=== PATIENT | male | born 1935 | race Caucasian/White ===

== ENCOUNTER 2018-02-02 10:24 | Inpatient (IN) ==
[2018-02-02] MEDS ORDERED: CALCIUM GLUCONATE 4.65 MEQ in DEXTROSE 5% IN WATER 50 ML IV ONE ×2 (12:17→13:05)
[2018-02-02] MEDS ORDERED: NALOXONE HCL 0.4 MG/ML VIAL IV PRN (12:30)
[2018-02-02] MEDS ORDERED: ACETAMINOPHEN 325 MG TABLET PO PRN (12:30)
[2018-02-02] MEDS ORDERED: DEXTROSE 31 GM ORAL.SUSP PO PRN (12:34)
[2018-02-02] MEDS ORDERED: DEXTROSE 50% 50 ML VIAL IV PRN (12:34)
[2018-02-02] MEDS ORDERED: METOLAZONE 2.5 MG TABLET PO ONE (12:36)
[2018-02-02] MEDS ORDERED: IPRATROPIUM/ALBUTEROL 3 ML AMPUL.NEB NEB ONE (12:52)
[2018-02-02] MEDS ORDERED: FUROSEMIDE 250 MG in 0.9 % SODIUM CHLORIDE 225 ML IV SCH (13:00)
[2018-02-02] MEDS ORDERED: FUROSEMIDE 100 MG/10 ML VIAL IV ONE (13:00)
[2018-02-02] MEDS ORDERED: SODIUM POLYSTYRENE SULFONATE 15 GM/60 ML SUSPENSION PO ONE (13:04)
[2018-02-02] MEDS ORDERED: DEXTROSE 50% 50 ML VIAL IV ONE (13:05)
[2018-02-02] MEDS ORDERED: INSULIN REGULAR, HUMAN 1 UNIT/0.01 ML UNIT IV ONE (13:05)
[2018-02-02 13:16] LABS: Basophils # (Auto) 0 K/mcL (0.0-0.3); Basophils % (Auto) 0.4 % (0.0-2.0); Eosinophils # (Auto) 0.1 K/mcL (0.0-0.7); Eosinophils % (Auto) 1.8 % (0.0-7.0); Lymphocytes # (Auto) 0.5 K/mcL (1.5-4.8); Lymphocytes % (Auto) 7.3 % (15.5-49.0); Mean Cell Volume 89.6 fL (80.0-100.0); Mean Corpuscular HGB Conc 32.9 g/dL (31.0-36.0); Mean Corpuscular Hemoglobin 29.5 pg (26.0-34.0); Monocytes # (Auto) 0.6 K/mcL (0.1-0.9); Monocytes % (Auto) 8.5 % (1.0-12.0); Platelet Count 175 K/mcL (140-440); Red Cell Distribution Width 15.7 % (11.5-14.5)
--- NOTE | 2018-02-02 13:30 | XRay Report ---
CLINICAL INFORMATION: CHF COMPARISON: 01/20/2018 FINDINGS: Moderate cardiomegaly is unchanged. Mediastinum is unremarkable. Pulmonary vessels are now mildly distended and there is mild interstitial edema throughout both lungs. Moderate left basilar infiltrate or atelectasis has developed in the retrocardiac region. IMPRESSION: Mild CHF - new Moderate infiltrate or atelectasis developing left cardiac region Interpreted and Authenticated by: Fahad Ramos 02/02/18
[2018-02-02] MEDS: 0.9 % SODIUM CHLORIDE 10 ML SYRINGE IV SCH ×3 (13:54→20:21)
[2018-02-02 14:04] LABS: ALT/SGPT 38 U/l (0-40); Albumin 3.1 gm/dL (3.2-5.2); Alkaline Phosphatase 90 U/L (39-117); Bilirubin,Direct < 0.2 mg/dL (0.0-0.3); Blood Urea Nitrogen 79 mg/dl (8-23); Gamma Glutamyl Transpeptidase 68 U/L (8-61); Uric Acid 7.9 mg/dL (2.5-8.0)
--- NOTE | 2018-02-02 14:15 | Internal Med History&Physical ---
Medical - H&P: HPI Patient information: Note initiated : 02/02/18 at 2:12 pm Service Date, if different from initiated Date: [] Patient: Darshan Barba a 82 y/o M admitted on 02/02/18 for hyperkalemia and volume overload. Chief Complaint: [] History of present illness: Mr. Barba is a 82 year old M with multiple medical issues who was [facility] from hip pain. The patient was there after the stent at [facility]. I believe he was admitted for sepsis and pneumonia, he also had acute on chronic renal failure. The patient was seen in the clinic by nephrology for renal failure follow-up at which time it was noted that the patient had significant bradycardia. Even during his hospital stay the patient had low heart rate this time around the patient's heart rate was in the 30s. The patient was sent to the emergency room at [facility] for evaluation. The patient was seen by a [employer] Dr. Smith. I reviewed his note pacemaker was not offered to this patient as he was asymptomatic, was mentating well, and was making good amounts of urine. No changes in medications were recommended. Patient was subsequently discharged back to [facility]. The patient at the rehab center continued to have worsening shortness of breath, had one episode of healthcare associated pneumonia and was treated with Zosyn. Antibiotics started on Monday 5 days of antibiotics will be tomorrow. I reviewed the discharge summary from pulmonary. Shortness of breath progressively has worsened over the last few days, patient has had some cough increased distention of abdomen increased swelling in his lower extremity. The patient has been treated with IV Lasix, without much response and worsening renal function. The patient was therefore sent here at [facility] for initiation of dialysis. Patient is somewhat hesitant regarding his dialysis plans at bedside he is willing to consider dialysis if it makes him feel better. On my evaluation today the patient was short of breath and that was his only complaint. He did not mention about chest pain nausea vomiting, had generalized swelling and worsening swelling along with worsening distention of abdomen. He denied any headache changes in vision difficulty in swallowing denied any fevers chills had some cough but no specific sputum production. Patient was saturating around 90-92% on 6 L of oxygen. Heart rate was 35 EKG was done stat which showed atrial flutter with slow ventricular response. He was placed on BIPAp to help with oxygenation. Admitted to PCU for further management, nephrology has been consulted and are following Pt is DNR - Constitutional Constitutional: Present: fatigue. Absent: chills, fever(s), headache(s) - EENT Eyes: Absent: loss of vision, other visual disturbances Nose, mouth and throat: Absent: headache(s), vertigo - Cardiovascular Cardiovascular: Present: dyspnea, dyspnea on exertion, edema, irregular heart rhythm, pedal edema, slow heart rate. Absent: chest pain, syncope - Respiratory Respiratory: Present: cough, dyspnea. Absent: pain on inspirtation - Gastrointestinal Gastrointestinal: Absent: diarrhea, nausea, tenesmus, vomiting - Genitourinary Genitourinary: Absent: urinary frequency, urinary hesitancy, urinary incontinence, urinary urgency - Musculoskeletal Musculoskeletal: Absent: muscle cramps - Integumentary Integumentary: Absent: wounds, jaundice - Neurological Neurological: Absent: focal weakness, vertigo, weakness - Psychiatric Psychiatric: Absent: suicidal ideation, visual hallucinations - Endocrine Endocrine: Absent: polydipsia, polyphagia, polyuria - Hematologic/Lymphatic Hematologic/Lymphatic: Absent: easy bleeding, easy bruising - Allergic/Immunologic Allergic/Immunologic: Absent: uticaria, wheezing Medical - H&P: [facility] Medical history: Medical History (Last Reviewed 12/28/17 @ 12:39 by Jigna Chapa MD) Headache (Chronic) Paroxysmal atrial fibrillation (Chronic) Chronic systolic heart failure (Chronic) Chronic renal insufficiency (Chronic) Edema (Chronic) Atrial fibrillation (Chronic) Anemia (Chronic 10/01/13) Gout (Chronic 10/01/13) CHF (congestive heart failure) (Chronic 10/01/13) Rotator cuff tear (Chronic) Diabetic peripheral neuropathy (Chronic 10/01/13) Hyperlipidemia (Chronic 10/01/13) Hypertension, essential (Chronic 10/01/13) Tinea pedis (Chronic 10/01/13) Benign prostatic disease (Chronic 10/01/13) Diabetes mellitus, type II (Chronic 10/01/13) Hyperkalemia (Chronic) Surgical history: Past Surgical History (Last Reviewed 12/28/17 @ 12:39 by Jigna Chapa MD) No pertinent past surgical history (Chronic) Family history: reviewed and not pertinent Medical - H&P: Meds Home Medications Medication Instructions Recorded Confirmed Type doxazosin 8 mg tablet 8 mg PO QHS tab 01/19/15 01/17/18 History omeprazole 20 mg capsule,delayed 20 mg PO QDAY 01/19/15 01/17/18 History release simvastatin 40 mg tablet 40 mg PO QDAY tab 01/19/15 01/17/18 History vitamin B complex tablet 1 tab PO QDAY tab 01/19/15 01/17/18 History allopurinol 100 mg tablet 100 mg PO QDAY tab 06/17/16 01/17/18 History cholecalciferol (vitamin D3) 1,000 1,000 unit PO QDAY cap 06/17/16 01/17/18 History unit capsule finasteride 5 mg tablet 5 mg PO QDAY 06/17/16 12/28/17 History lisinopril 10 mg tablet 10 mg PO QDAY 06/17/16 01/17/18 History psyllium husk 0.52 gram capsule 0.52 g PO QDAY cap 06/17/16 01/17/18 History aspirin 81 mg tablet,delayed 81 mg PO QDAY 10/13/16 01/17/18 History release tramadol 50 mg tablet 50 mg PO TID PRN 20 Days #60 tab 10/13/16 01/17/18 History furosemide 40 mg tablet 40 mg PO QDAY tab 03/30/17 01/17/18 History metolazone 2.5 mg tablet 2.5 mg PO .2XW tab 03/30/17 01/17/18 History acetaminophen ER 650 mg 650 mg PO BID tab 06/27/17 01/17/18 History tablet,extended release amlodipine 10 mg tablet 10 mg PO QDAY PRN tab 06/27/17 01/17/18 History ferrous sulfate 325 mg (65 mg 325 mg PO QDAY tab 12/28/17 01/17/18 History iron) tablet fluticasone 50 mcg/actuation nasal 2 spray INTRANASAL QDAY 12/28/17 01/17/18 History spray,suspension glipizide ER 10 mg tablet, 10 mg PO BID tab 12/28/17 01/17/18 History extended release 24 hr isosorbide mononitrate ER 30 mg 30 mg PO QAM 12/28/17 01/17/18 History tablet,extended release 24 hr Allergies Allergy/AdvReac Type Severity Reaction Status Date / Time diphenhydramine Allergy Unknown Unknown Verified 01/17/18 08:51 [From Benadryl] Medical - H&P: Exam - Constitutional Vitals: Pulse Resp Pulse Ox 40 L 35 H 98 02/02/18 13:56 02/02/18 13:56 02/02/18 13:56 Exam: GENERAL: The patient is a well-developed, well-nourished in no apparent distress. Is alert and oriented x3. VITAL SIGNS: Reviewed and as noted elsewhere. HEENT: Head is normocephalic and atraumatic. Extraocular muscles are intact. Pupils are equal, round, and reactive to light. Nares appeared normal. Mouth appears any without lesions. Mucous membranes are moist. NECK: Normal to inspection, Supple, No lymphadenopathy or thyromegaly. distended JVP LUNGS: Air entry equal on both sides, no wheezing, but has crackles present at the bases, pt is tachyepnic. No accessory muscles of respiration, HEART: bradycardic rate and rhythm irregular , S1 and S2 heard, no Gallop, s4 present, systolic murmur mitral. ABDOMEN: Soft, nontender, but distended. Positive bowel sounds. No hepatosplenomegaly was noted. EXTREMITIES: No cyanosis, clubbing, rash, lesion, edema uptill the abdomen NEUROLOGIC: Cranial nerves II through XII are grossly intact. Motor and Sensory System Grossly Intact PSYCHIATRIC: Normal affect, Normal Mood. Appropriate Behavior. SKIN: No ulceration or wounds noted, No jaundice, No rash noted. Medical - H&P: Reslt - Labs CBC & Chem 7: 02/02/18 12:31 02/02/18 12:31 Labs: Short CBC 02/02/18 Range/Units 12:31 WBC 7.3 (4.5-11.0) K/mcL Hgb 7.9 L (13.5-16.5) g/dL Hct 24.2 L (41.0-55.0) % Plt Count 175 (140-440) K/mcL BMP 02/02/18 12:31 Sodium 131 L Potassium 6.2 H* Chloride 95 L Carbon Dioxide 20 L BUN 79 H Creatinine 3.5 H Glucose 314 H Calcium 8.8 Cardiac Enzymes 02/02/18 Range/Units 12:31 Troponin T 0.53 H* (0-0.03) ng/ml Liver Function 02/02/18 Range/Units 12:31 Total Bilirubin 0.5 (0.0-1.0) mg/dL Direct Bilirubin < 0.2 (0.0-0.3) mg/dL GGT 68 H (8-61) U/L AST 24 (0-37) U/l ALT 38 (0-40) U/l Alkaline Phosphatase 90 (39-117) U/L Albumin 3.1 L (3.2-5.2) gm/dL - ABG Interpretation -: ABG interpreted by me Interpretation: respiratory alkalosis (hypoxia) Medical - H&P: A/P - Narrative A/P Narrative: A/P Acute on Chronic Renal failure Acute Congestive Heart failure wuith genralized anasarca Acute hypoxic REspiratory failure Acute Hyperkalemia Atrial Flutter with Slow heart rate Bradycardia Hypertension Hyperlipidemia Diabetes Mellitus Obesty Elevated troponin Plan Admit to PCU status Nephrology consulted Medically manage hyperkalemia IV calcium gluconate x 1 given. BIPAP for hypoxia Trend troponin, likely from ckd and chf IV lasix and lasix drip initiated, PO metolozone/ IV cholorthiazide to help with diuresis, see if this helps Consider hemodialysis, will need catheter placement, unfortunately patient is unstable for transport, will see if pt remains stable, can place femoral catheter if needed. Bradycardia due to aflutter, rarely amlodpine can worsen bradycadia. will hold off on same. Pt symptoms have worsened since his HR has dropped and I feel that he may benefit from a pacemaker, will discuss same with family for consideration to transfer to [facility] [place] or a second opinion. Resume home meds as appropriate hold blood pressure medications insulin ssi for glucose control Diet carb consistent Social History - Tobacco smoking status: Former smoker - Alcohol alcohol intake frequency: does not drink
[2018-02-02] MEDS ORDERED: CHLOROTHIAZIDE SODIUM 500 MG VIAL IV ONE (14:44)
[2018-02-02 14:49] LABS: Hemoglobin A1C 7.3 % HGB (4.0-6.0)
[2018-02-02] MEDS: ONDANSETRON 4 MG/2 ML VIAL IV PRN (15:15)
[2018-02-02] MEDS: PIPERACILLIN SODIUM/TAZOBACTAM 2.25 GM in DEXTROSE 5% IN WATER 50 ML IV SCH ×2 (15:15→21:22)
--- NOTE | 2018-02-02 15:24 | Nephrology Consult Note ---
History of Present Illness - Reason for Consult Patient information: Note initiated : 02/02/18 at 3:05 pm Service Date, if different from initiated Date: [] Patient: Darshan Barba a 82 y/o M admitted on 02/02/18 for hyperkalemia and volume overload. Chief Complaint: [] Consult date: 02/02/18 acute renal failure Requesting physician: Param Flores - Chief Complaint SOB - History of Present Illness Patient is a 82 y/o pleasant white male with PMH of DM type 2, HTN, CHF, CKD and other medical issues who is admitted with acute on chronic renal failure and anasarca Patient has had h/o recurrent hospitalisation recently which started after he had mechanical fall at home. He was hospitalised at [facility] 1-2 weeks later with PNA/sepsis/JORGE ALBERTO, his renal function improved with diuresis to near baseline. He was at [facility] in [place] for the last few weeks. He c/o having progressive SOB for the last 4-5 days. He is been treated with zosyn for this at SNF, he was also getting IV and oral diuretics, furosemide 40mg for fluid overload but this did not improve. 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 VIVEK on CPAP obesity dyslipidemia Afib gout Past surgical history: nothing pertinent Past family history: no pertinent past family history Past social history: denies addictions lives with his in [place] Medications and Allergies Home Medications Medication Instructions Recorded Confirmed Type doxazosin 8 mg tablet 8 mg PO QHS tab 01/19/15 01/17/18 History omeprazole 20 mg capsule,delayed 20 mg PO QDAY 01/19/15 01/17/18 History release simvastatin 40 mg tablet 40 mg PO QDAY tab 01/19/15 01/17/18 History vitamin B complex tablet 1 tab PO QDAY tab 01/19/15 01/17/18 History allopurinol 100 mg tablet 100 mg PO QDAY tab 06/17/16 01/17/18 History cholecalciferol (vitamin D3) 1,000 1,000 unit PO QDAY cap 06/17/16 01/17/18 History unit capsule finasteride 5 mg tablet 5 mg PO QDAY 06/17/16 12/28/17 History lisinopril 10 mg tablet 10 mg PO QDAY 06/17/16 01/17/18 History psyllium husk 0.52 gram capsule 0.52 g PO QDAY cap 06/17/16 01/17/18 History aspirin 81 mg tablet,delayed 81 mg PO QDAY 10/13/16 01/17/18 History release tramadol 50 mg tablet 50 mg PO TID PRN 20 Days #60 tab 10/13/16 01/17/18 History furosemide 40 mg tablet 40 mg PO QDAY tab 03/30/17 01/17/18 History metolazone 2.5 mg tablet 2.5 mg PO .2XW tab 03/30/17 01/17/18 History acetaminophen ER 650 mg 650 mg PO BID tab 06/27/17 01/17/18 History tablet,extended release amlodipine 10 mg tablet 10 mg PO QDAY PRN tab 06/27/17 01/17/18 History ferrous sulfate 325 mg (65 mg 325 mg PO QDAY tab 12/28/17 01/17/18 History iron) tablet fluticasone 50 mcg/actuation nasal 2 spray INTRANASAL QDAY 12/28/17 01/17/18 History spray,suspension glipizide ER 10 mg tablet, 10 mg PO BID tab 12/28/17 01/17/18 History extended release 24 hr isosorbide mononitrate ER 30 mg 30 mg PO QAM 12/28/17 01/17/18 History tablet,extended release 24 hr Allergies Allergy/AdvReac Type Severity Reaction Status Date / Time diphenhydramine Allergy Unknown Unknown Verified 01/17/18 08:51 [From Benadryl] Exam - Vital Signs Vital signs: Temp Pulse Resp BP Pulse Ox 98.7 F 39 L 22 122/96 98 02/02/18 12:04 02/02/18 14:31 02/02/18 14:31 02/02/18 14:31 02/02/18 14:31 - General Appearance General appearance: well-nourished, chronically ill, frail EENT: mucous membranes moist Neck: JVD Respiratory: rales Cardiology: no rub, edema (anasarca), irregular rhythm (bradycardic) Gastrointestinal: no tenderness, no guarding (abdominal wall edema ++) Integumentary: warm and dry Neurologic: alert and oriented x3 Musculoskeletal: no erythema, no cyanosis Psychiatric: mood/affect appropriate Results - Lab Results 02/02/18 12:31 02/02/18 12:31 Most recent lab results Calcium 8.8 mg/dl (8.6-10.4) 02/02/18 12:31 Phosphorus 4.3 mg/dL (2.7-4.5) 02/02/18 12:31 Magnesium 2.1 mg/dL (1.6-2.5) 02/02/18 12:31 Assessment and Plan (1) Acute on chronic renal failure Status: Acute (2) CHF (congestive heart failure) Status: Chronic (3) Hyperkalemia Status: Acute (4) Anemia Status: Chronic - Narrative A/P Narrative: Patient with acute on chronic renal failure with anasarca and hyperkalemia with progressive worsening of symptoms treated hyperkalemia with calcium gluconate, lasix, kayexalate and insulin with d50 patient was given lasix 80 IV followed by continuous IV lasix infusion and also received thiazide diuretic to improve efficacy of loop diuretic will follow the response if continues to have poor urinary output will place temp dialysis cath and initiate urgent dialysis if patient wishes to pursue recheck labs will obtain anemia work on optimize Hb, etiology of anemia likely multifactorial Patient and his was offered transfer to [place] given low HR and other multiple ongoing issues but he wishes no further transfer at this time and he is also not sure if he wants to pursue dialysis overall poor prognosis Will monitor closely
[2018-02-02] MEDS: IPRATROPIUM/ALBUTEROL 3 ML AMPUL.NEB NEB SCH ×3 (15:53→22:55)
[2018-02-02] MEDS: METOCLOPRAMIDE 10 MG/2 ML VIAL IV SCH ×4 (16:02→23:29)
[2018-02-02] MEDS ORDERED: guaiFENesin/DEXTROMETHORPHAN ORAL SOL PO PRN (16:56)
[2018-02-02] MEDS ORDERED: BUMETANIDE 0.25 MG/ML VIAL IV ONE (16:57)
[2018-02-02] MEDS: INSULIN LISPRO 1 UNIT/0.01 ML UNIT SQ SCH ×2 (17:31→20:40)
[2018-02-02 19:58] LABS: Blood Urea Nitrogen 81 mg/dl (8-23)
[2018-02-02] MEDS: PANTOPRAZOLE 40 MG VIAL IV SCH (20:40)
[2018-02-02] MEDS ORDERED: HEPARIN 5,000 UNIT/ML VIAL SQ SCH (21:00)
[2018-02-02] MEDS ORDERED: BUMETANIDE 0.25 MG/ML VIAL IV SCH ×2 (21:00→23:30)
[2018-02-03] MEDS: IPRATROPIUM/ALBUTEROL 3 ML AMPUL.NEB NEB SCH ×2 (02:58→07:53)
[2018-02-03 06:25] LABS: Basophils # (Auto) 0 K/mcL (0.0-0.3); Basophils % (Auto) 0.5 % (0.0-2.0); Eosinophils # (Auto) 0.3 K/mcL (0.0-0.7); Eosinophils % (Auto) 3.9 % (0.0-7.0); Granulocytes % (Auto) 73.7 % (38.0-78.0); Lymphocytes # (Auto) 0.9 K/mcL (1.5-4.8); Lymphocytes % (Auto) 12.5 % (15.5-49.0); Mean Cell Volume 89.2 fL (80.0-100.0); Mean Corpuscular Hemoglobin 29.4 pg (26.0-34.0); Monocytes # (Auto) 0.7 K/mcL (0.1-0.9); Monocytes % (Auto) 9.4 % (1.0-12.0); Platelet Count 175 K/mcL (140-440); RBC 2.65 M/mcL (4.50-5.90); Red Cell Distribution Width 15.9 % (11.5-14.5)
[2018-02-03] MEDS: PIPERACILLIN SODIUM/TAZOBACTAM 2.25 GM in DEXTROSE 5% IN WATER 50 ML IV SCH (06:45)
[2018-02-03] MEDS: METOCLOPRAMIDE 10 MG/2 ML VIAL IV SCH (06:46)
[2018-02-03] MEDS: 0.9 % SODIUM CHLORIDE 10 ML SYRINGE IV SCH ×7 (06:46→15:44)
[2018-02-03 06:59] LABS: ALT/SGPT 38 U/l (0-40); Albumin/Globulin Ratio 0.9 (1.0-2.3); Alkaline Phosphatase 92 U/L (39-117); Bilirubin,Direct < 0.2 mg/dL (0.0-0.3); Blood Urea Nitrogen 80 mg/dl (8-23); Gamma Glutamyl Transpeptidase 68 U/L (8-61); Uric Acid 8.2 mg/dL (2.5-8.0)
[2018-02-03] MEDS ORDERED: ASPIRIN 81 MG TAB.CHEW CHEWED ONE (07:11)
[2018-02-03] MEDS ORDERED: ASPIRIN 81 MG TAB.CHEW ONE (07:20)
--- NOTE | 2018-02-03 07:58 | Cat Scan Report ---
CLINICAL INFORMATION: Code stroke COMPARISON: None. TECHNIQUE: 2.5 mm helical slices were obtained in the skull base to vertex. Following reconstruction, axial reformatted images were reviewed at bone and parenchymal windows. The exam was performed using radiation dose optimization techniques including, but not limited to, automated exposure control, adjustment of the mA and/or kV according to patient size and use of iterative reconstruction technique. FINDINGS: The ventricles, sulci, fissures, and cisterns are symmetrically enlarged compatible with mild age-related atrophy. There is a 3 cm hemorrhage in the right frontal lobe involving the cortex and subcortical white matter with mild surrounding edema and minimal local mass effect. A small amount of subarachnoid hemorrhage is seen in the adjacent sulci. Mild chronic ischemic changes in the deep cerebral white matter are expected for age. Bone windows show no osseous abnormality. IMPRESSION: 4 cm hemorrhage of the right frontal lobe with mild surrounding edema and only minimal local mass effect. A small amount of subarachnoid hemorrhage in the adjacent sulci. This could indicate hemorrhagic CVA, amyloid angiopathy, hemorrhagic tumor, coagulopathy, AVM or peripheral aneurysm. Consider: Brain MRI after hemorrhage subsides Interpreted and Authenticated by: Fahad Ramos 02/03/18
[2018-02-03] MEDS: INSULIN LISPRO 1 UNIT/0.01 ML UNIT SQ SCH (07:59)
[2018-02-03] MEDS ORDERED: CHLOROTHIAZIDE SODIUM 500 MG VIAL IV ONE (08:01)
[2018-02-03] MEDS: PANTOPRAZOLE 40 MG VIAL IV SCH (08:03)
[2018-02-03] MEDS: ONDANSETRON 4 MG/2 ML VIAL IV PRN (08:14)
[2018-02-03] MEDS ORDERED: SIMVASTATIN 20 MG TABLET PO SCH (09:00)
[2018-02-03] MEDS ORDERED: VITAMIN D3 1,000 UNIT TABLET PO SCH (09:00)
[2018-02-03] MEDS ORDERED: ALLOPURINOL 100 MG TABLET PO SCH (09:00)
[2018-02-03] MEDS ORDERED: ONDANSETRON 4 MG/2 ML VIAL IV PRN (10:43)
[2018-02-03] MEDS ORDERED: ACETAMINOPHEN 325 MG TABLET PO PRN (10:43)
[2018-02-03] MEDS ORDERED: LACTOPEROXI/GLUC OXID/POT THIO 1 EACH GEL..EA. TOPICAL PRN (10:43)
[2018-02-03] MEDS ORDERED: guaiFENesin/DEXTROMETHORPHAN ORAL SOL PO PRN (10:43)
[2018-02-03] MEDS ORDERED: IPRATROPIUM/ALBUTEROL 3 ML AMPUL.NEB NEB SCH (11:00)
[2018-02-03] MEDS: LORazepam 2 MG/ML VIAL IV PRN ×3 (11:12→19:31)
--- NOTE | 2018-02-03 14:18 | Internal Med Progress Note ---
Medical - PN: Subj Patient information: Note initiated : 02/03/18 at 2:16 pm Service Date, if different from initiated Date: [] Patient: Darshan Barba a 82 y/o M admitted on 02/02/18 for hyperkalemia and volume overload. Chief Complaint: [] Interval history: Mr. Barba is a 82 year old M with multiple medical issues [facility]. The patient was there after the stent at [facility]. I believe he was admitted for sepsis and pneumonia, he also had acute on chronic renal failure. The patient was seen in the clinic by nephrology for renal failure follow-up at which time it was noted that the patient had significant bradycardia. Even during his hospital stay the patient had low heart rate this time around the patient's heart rate was in the 30s. The patient was sent to the emergency room at [facility] for evaluation. The patient was seen by a shoe dresser Dr. Smith. I reviewed his note pacemaker was not offered to this patient as he was asymptomatic, was mentating well, and was making good amounts of urine. No changes in medications were recommended. Patient was subsequently discharged back to [facility]. The patient at the rehab center continued to have worsening shortness of breath, had one episode of healthcare associated pneumonia and was treated with Zosyn. Antibiotics started on Monday 5 days of antibiotics will be tomorrow. I reviewed the discharge summary from pulmonary. Shortness of breath progressively has worsened over the last few days, patient has had some cough increased distention of abdomen increased swelling in his lower extremity. The patient has been treated with IV Lasix, without much response and worsening renal function. The patient was therefore sent here at [facility] for initiation of dialysis. Patient is somewhat hesitant regarding his dialysis plans at bedside he is willing to consider dialysis if it makes him feel better. On my evaluation today the patient was short of breath and that was his only complaint. He did not mention about chest pain nausea vomiting, had generalized swelling and worsening swelling along with worsening distention of abdomen. He denied any headache changes in vision difficulty in swallowing denied any fevers chills had some cough but no specific sputum production. Patient was saturating around 90-92% on 6 L of oxygen. Heart rate was 35 EKG was done stat which showed atrial flutter with slow ventricular response. He was placed on BIPAp to help with oxygenation. Admitted to PCU for further management, nephrology has been consulted and are following 02/03 Patient seen and examined no acute overnight events, he was responding very well to Bumex diuresis. The patient unfortunately this morning had left-sided weakness facial droop and decreased sensation on his left-sided extremities. CT head showed acute hemorrhagic infarct. The patient has been struggling with hospital admissions, worsening renal function cardiac function and now has developed a stroke. He still has his cognition. He did not want to be transferred to a high level of care. At this point in time he does not even wish to continue with ongoing treatment. I reviewed the plan of care of hospice with the entire family. The patient's sons and daughters grandkids were present and they all made a decision to under the patient's wishes and make him comfortable. Patient has been transferred to comfort care status. All nonessential medications have been discontinued only medications for comfort are going to be administered. Pertinent ROS: Denies headache, dizziness Denies chest pain, palpitations Denies cough or shortness of breath Denies abdominal pain, nausea or vomiting. weakness on left side Additional PMFSH (Level 3 Only): Medical History (Last Reviewed 12/28/17 @ 12:39 by Jigna Chapa MD) Headache (Chronic) Paroxysmal atrial fibrillation (Chronic) Chronic systolic heart failure (Chronic) Chronic renal insufficiency (Chronic) Edema (Chronic) Atrial fibrillation (Chronic) Anemia (Chronic 10/01/13) Gout (Chronic 10/01/13) CHF (congestive heart failure) (Chronic 10/01/13) Rotator cuff tear (Chronic) Diabetic peripheral neuropathy (Chronic 10/01/13) Hyperlipidemia (Chronic 10/01/13) Hypertension, essential (Chronic 10/01/13) Tinea pedis (Chronic 10/01/13) Benign prostatic disease (Chronic 10/01/13) Diabetes mellitus, type II (Chronic 10/01/13) Hyperkalemia (Chronic) - Constitutional Vitals: Vital Signs Temp Pulse Resp BP Pulse Ox 98.2 F 53 L 22 105/92 96 02/03/18 08:17 02/03/18 11:31 02/03/18 11:31 02/03/18 10:03 02/03/18 11:31 Period Temp Pulse Resp BP Sys/Julian Pulse Ox Last 24 Hr 98.0 F-98.9 F 37-53 13-28 105-160/38-96 91-100 Intake and Output 02/03/18 02/03/18 02/03/18 05:59 13:59 21:59 Intake Total 50 / 50 Output Total 1606 / 1606 840 / 840 Balance -1606 / -1606 -790 / -790 Weight 267 lb 4 oz Patient Weight 02/04/18 04:59 Weight 267 lb 4 oz Intake & Output: Intake & Output 02/03/18 02/03/18 02/03/18 05:59 13:59 21:59 Intake Total 50 / 50 Output Total 1606 / 1606 840 / 840 Balance -1606 / -1606 -790 / -790 Weight 267 lb 4 oz Intake: IV 50 / 50 Zosyn 2.25 gm In Dextrose 5% in 50 / 50 Water 50 ml @ 100 mls/hr IV Q8H [facility] Rx#:[id number] Output: Urine Catheter Amount 1606 / 1606 840 / 840 Other: Urine Appearance Clear Clear Uretheral (Coombs) Clear Urine Color Pale Bright Yellow Uretheral (Coombs) Pale Stool Size Small Stool Color Brown Stool Consistency Soft Formed Exam: Constitutional; Afebrile, cooperative, alert, not in distress. Eyes- No icterus, , No periorbital swelling Ears- Ext ear normal, hearing normal to conversation. Neck- Midline trachea, supple Respiratory system: Air Entry equal on both sides, bibasilar crackles present, improved from yesterday. CVS- Rate rhythm irregular, S1,S2 heard, no gallop, no rub. Abdomen- Soft nontender abdomen, no organomegaly, no tenderness, no guarding or rigidity, OUTREACH REPRESENTATIVE- AOOx3, left side strength 1-2/5, upper and lower extremity, left UMN Facial , Decreased sensation on left side upper and lower extermity. Medical - PN: Obj Da - Labs CBC & Chem 7: 02/03/18 03:50 02/03/18 03:50 Labs: Abnormal Lab Results 02/03/18 02/03/18 02/03/18 08:05 07:48 03:50 RBC Hgb Hct POC Hct RDW Gran % Lymph % (Auto) Lymph # (Auto) POC PT 15.1 H PT 16.5 H POC INR 1.3 H INR 1.3 H POC Sodium Sodium POC Potassium Potassium Chloride Carbon Dioxide POC Total CO2 Anion Gap 17.0 H POC BUN BUN 80 H Creatinine 3.3 H POC Creatinine Glucose 128 H POC Glucose Hemoglobin A1c Uric Acid 8.2 H POC WB Ioniz Calcium Phosphorus 5.2 H GGT 68 H Lactate Dehydrogenase 279 H Troponin T NT-Pro-B Natriuret Pep Albumin 3.0 L Albumin/Globulin Ratio 0.9 L 02/03/18 02/02/18 02/02/18 03:50 18:52 18:52 RBC 2.65 L Hgb 7.8 L Hct 23.6 L POC Hct RDW 15.9 H Gran % Lymph % (Auto) 12.5 L Lymph # (Auto) 0.9 L POC PT PT POC INR INR POC Sodium Sodium POC Potassium Potassium 5.2 H Chloride Carbon Dioxide 21 L POC Total CO2 Anion Gap POC BUN BUN 81 H Creatinine 3.6 H POC Creatinine Glucose 248 H POC Glucose Hemoglobin A1c Uric Acid POC WB Ioniz Calcium Phosphorus GGT Lactate Dehydrogenase Troponin T 0.50 H* NT-Pro-B Natriuret Pep Albumin Albumin/Globulin Ratio 02/02/18 02/02/18 02/02/18 15:35 12:31 12:31 RBC Hgb Hct POC Hct 23.0 L RDW Gran % Lymph % (Auto) Lymph # (Auto) POC PT PT POC INR INR POC Sodium Sodium POC Potassium 5.4 H Potassium Chloride Carbon Dioxide POC Total CO2 20 L Anion Gap POC BUN 75 H BUN Creatinine POC Creatinine 3.9 H Glucose POC Glucose 264 H Hemoglobin A1c 7.3 H Uric Acid POC WB Ioniz Calcium 1.10 L Phosphorus GGT Lactate Dehydrogenase Troponin T 0.53 H* NT-Pro-B Natriuret Pep Albumin Albumin/Globulin Ratio 02/02/18 02/02/18 12:31 12:31 RBC 2.70 L Hgb 7.9 L Hct 24.2 L POC Hct 23.0 L RDW 15.7 H Gran % 82.0 H Lymph % (Auto) 7.3 L Lymph # (Auto) 0.5 L POC PT PT POC INR INR POC Sodium 131 L Sodium 131 L POC Potassium 6.0 H* Potassium 6.2 H* Chloride 95 L Carbon Dioxide 20 L POC Total CO2 21 L Anion Gap POC BUN 80 H BUN 79 H Creatinine 3.5 H POC Creatinine 3.7 H Glucose 314 H POC Glucose 305 H Hemoglobin A1c Uric Acid POC WB Ioniz Calcium 1.12 L Phosphorus GGT 68 H Lactate Dehydrogenase Troponin T NT-Pro-B Natriuret Pep 46110.0 H Albumin 3.1 L Albumin/Globulin Ratio Meds: Medications Acetaminophen (Tylenol) 650 mg PO Q4-6HP PRN PRN Reason: PAIN/FEVER > 101 Glucose Oxid/Lactoperoxid/Muramidas (Biotene) 1 each TOPICAL PRN PRN PRN Reason: Dry Mouth Guaifenesin (Robitussin Dm) 10 ml PO Q4HP PRN PRN Reason: Cough Lorazepam (Ativan) 0 mg IV Q1HP PRN; Protocol PRN Reason: ANXIETY/SEDATION Last Admin: 02/03/18 13:44 Dose: 1 mg Morphine Sulfate (Morphine) 0 mg IV Q1HP PRN PRN Reason: Pain Ondansetron HCl (Zofran) 4 mg IV Q4-6HP PRN PRN Reason: Nausea And Vomiting Sodium Chloride (Saline Flush) 10 ml IV Q8 [facility] Last Admin: 02/03/18 13:44 Dose: 10 ml Sodium Chloride (Saline Flush) 10 ml IV Q8 [facility] Last Admin: 02/03/18 13:44 Dose: Not Given Medical - PN: A/P - Time Spent With Patient Total time spent is greater than 50% in coordination of care (as documented) at patient's floor/unit and/or counseling patient: - Narrative A/P Narrative: A/P Acute on Chronic Renal failure Acute Congestive Heart failure wuith genralized anasarca Acute hypoxic REspiratory failure Acute Hyperkalemia Atrial Flutter with Slow heart rate Bradycardia Hypertension Hyperlipidemia Diabetes Mellitus Obesty Elevated troponin Acute hemorrhagic CVA Plan Patient has elected comfort care Xfer to med surg morphine ativan for comfort regular diet Family at bedside DNR CC Medical - PN: Qual - VTE Deep Vein Thrombosis/Pulmonary Embolism Present on Admission: No
[2018-02-03] MEDS ORDERED: CALCIUM POLYCARBOPHIL 1 TABLET PO SCH (21:00)
[2018-02-04] MEDS: LORazepam 2 MG/ML VIAL IV PRN ×2 (00:02→06:58)
[2018-02-04] MEDS: 0.9 % SODIUM CHLORIDE 10 ML SYRINGE IV SCH ×6 (00:02→17:14)
[2018-02-04] MEDS ORDERED: ASPIRIN 81 MG TAB.CHEW PO SCH (09:00)
[2018-02-04] MEDS ORDERED: LORazepam 1 MG TABLET SL PRN (10:32)
--- NOTE | 2018-02-04 12:51 | Internal Med Progress Note ---
Medical - PN: Subj Patient information: Note initiated : 02/04/18 at 12:45 pm Service Date, if different from initiated Date: [] Patient: Darshan Barba a 82 y/o M admitted on 02/02/18 for hyperkalemia and volume overload. Chief Complaint: [] Interval history: Mr. Barba is a 82 year old M with multiple medical issues [facility]. The patient was there after the stent at [facility]. I believe he was admitted for sepsis and pneumonia, he also had acute on chronic renal failure. The patient was seen in the clinic by nephrology for renal failure follow-up at which time it was noted that the patient had significant bradycardia. Even during his hospital stay the patient had low heart rate this time around the patient's heart rate was in the 30s. The patient was sent to the emergency room at [facility] for evaluation. The patient was seen by a commissioning engineer Dr. Smith. I reviewed his note pacemaker was not offered to this patient as he was asymptomatic, was mentating well, and was making good amounts of urine. No changes in medications were recommended. Patient was subsequently discharged back to [facility]. The patient at the rehab center continued to have worsening shortness of breath, had one episode of healthcare associated pneumonia and was treated with Zosyn. Antibiotics started on Monday 5 days of antibiotics will be tomorrow. I reviewed the discharge summary from pulmonary. Shortness of breath progressively has worsened over the last few days, patient has had some cough increased distention of abdomen increased swelling in his lower extremity. The patient has been treated with IV Lasix, without much response and worsening renal function. The patient was therefore sent here at [facility] for initiation of dialysis. Patient is somewhat hesitant regarding his dialysis plans at bedside he is willing to consider dialysis if it makes him feel better. On my evaluation today the patient was short of breath and that was his only complaint. He did not mention about chest pain nausea vomiting, had generalized swelling and worsening swelling along with worsening distention of abdomen. He denied any headache changes in vision difficulty in swallowing denied any fevers chills had some cough but no specific sputum production. Patient was saturating around 90-92% on 6 L of oxygen. Heart rate was 35 EKG was done stat which showed atrial flutter with slow ventricular response. He was placed on BIPAp to help with oxygenation. Admitted to PCU for further management, nephrology has been consulted and are following 02/03 Patient seen and examined no acute overnight events, he was responding very well to Bumex diuresis. The patient unfortunately this morning had left-sided weakness facial droop and decreased sensation on his left-sided extremities. CT head showed acute hemorrhagic infarct. The patient has been struggling with hospital admissions, worsening renal function cardiac function and now has developed a stroke. He still has his cognition. He did not want to be transferred to a high level of care. At this point in time he does not even wish to continue with ongoing treatment. I reviewed the plan of care of hospice with the entire family. The patient's sons and daughters grandkids were present and they all made a decision to under the patient's wishes and make him comfortable. Patient has been transferred to comfort care status. All nonessential medications have been discontinued only medications for comfort are going to be administered. 02/04 Patient seen and examined, in bed comfortable. Patient is presently in comfort care status. Not in distress family by bedside Pertinent ROS: unable - Constitutional Vitals: Vital Signs Temp Pulse Resp BP Pulse Ox 101.1 F H 58 L 22 105/92 96 02/04/18 04:00 02/04/18 07:00 02/04/18 07:00 02/03/18 10:03 02/03/18 11:31 Period Temp Pulse Resp BP Sys/Julian Pulse Ox Last 24 Hr 101.1 F 58 22 Intake and Output 02/03/18 02/04/18 02/04/18 22:59 05:59 13:59 Output Total Balance Weight Intake & Output: Intake & Output 02/03/18 02/04/18 02/04/18 22:59 05:59 13:59 Output Total Balance Weight Output: Urine Catheter Amount Other: Urine Appearance Uretheral (Coombs) Clear Urine Color Uretheral (Coombs) Bright Yellow Exam: Constitutional; febrile, drowsy, not in distress FREELANCE INTERPRETER/TRANSLATOR- AOOx0, moving right side, no movement on left side of the body Medical - PN: Obj Da - Labs CBC & Chem 7: 02/03/18 03:50 02/03/18 03:50 Labs: Abnormal Lab Results 02/03/18 02/03/18 02/03/18 08:05 07:48 03:50 RBC Hgb Hct POC Hct RDW Gran % Lymph % (Auto) Lymph # (Auto) POC PT 15.1 H PT 16.5 H POC INR 1.3 H INR 1.3 H POC Sodium Sodium POC Potassium Potassium Chloride Carbon Dioxide POC Total CO2 Anion Gap 17.0 H POC BUN BUN 80 H Creatinine 3.3 H POC Creatinine Glucose 128 H POC Glucose Hemoglobin A1c Uric Acid 8.2 H POC WB Ioniz Calcium Phosphorus 5.2 H GGT 68 H Lactate Dehydrogenase 279 H Troponin T NT-Pro-B Natriuret Pep Albumin 3.0 L Albumin/Globulin Ratio 0.9 L 02/03/18 02/02/18 02/02/18 03:50 18:52 18:52 RBC 2.65 L Hgb 7.8 L Hct 23.6 L POC Hct RDW 15.9 H Gran % Lymph % (Auto) 12.5 L Lymph # (Auto) 0.9 L POC PT PT POC INR INR POC Sodium Sodium POC Potassium Potassium 5.2 H Chloride Carbon Dioxide 21 L POC Total CO2 Anion Gap POC BUN BUN 81 H Creatinine 3.6 H POC Creatinine Glucose 248 H POC Glucose Hemoglobin A1c Uric Acid POC WB Ioniz Calcium Phosphorus GGT Lactate Dehydrogenase Troponin T 0.50 H* NT-Pro-B Natriuret Pep Albumin Albumin/Globulin Ratio 02/02/18 02/02/18 02/02/18 15:35 12:31 12:31 RBC Hgb Hct POC Hct 23.0 L RDW Gran % Lymph % (Auto) Lymph # (Auto) POC PT PT POC INR INR POC Sodium Sodium POC Potassium 5.4 H Potassium Chloride Carbon Dioxide POC Total CO2 20 L Anion Gap POC BUN 75 H BUN Creatinine POC Creatinine 3.9 H Glucose POC Glucose 264 H Hemoglobin A1c 7.3 H Uric Acid POC WB Ioniz Calcium 1.10 L Phosphorus GGT Lactate Dehydrogenase Troponin T 0.53 H* NT-Pro-B Natriuret Pep Albumin Albumin/Globulin Ratio 02/02/18 02/02/18 12:31 12:31 RBC 2.70 L Hgb 7.9 L Hct 24.2 L POC Hct 23.0 L RDW 15.7 H Gran % 82.0 H Lymph % (Auto) 7.3 L Lymph # (Auto) 0.5 L POC PT PT POC INR INR POC Sodium 131 L Sodium 131 L POC Potassium 6.0 H* Potassium 6.2 H* Chloride 95 L Carbon Dioxide 20 L POC Total CO2 21 L Anion Gap POC BUN 80 H BUN 79 H Creatinine 3.5 H POC Creatinine 3.7 H Glucose 314 H POC Glucose 305 H Hemoglobin A1c Uric Acid POC WB Ioniz Calcium 1.12 L Phosphorus GGT 68 H Lactate Dehydrogenase Troponin T NT-Pro-B Natriuret Pep 26128.0 H Albumin 3.1 L Albumin/Globulin Ratio Meds: Medications Acetaminophen (Tylenol) 650 mg PO Q4-6HP PRN PRN Reason: PAIN/FEVER > 101 Glucose Oxid/Lactoperoxid/Muramidas (Biotene) 1 each TOPICAL PRN PRN PRN Reason: Dry Mouth Guaifenesin (Robitussin Dm) 10 ml PO Q4HP PRN PRN Reason: Cough Lorazepam (Ativan) 0 mg IV Q1HP PRN; Protocol PRN Reason: ANXIETY/SEDATION Last Admin: 02/04/18 06:58 Dose: 1 mg Lorazepam (Ativan) 1 mg SL Q4HP PRN PRN Reason: Anxiety Morphine Sulfate (Morphine) 0 mg IV Q1HP PRN PRN Reason: Pain Last Admin: 02/04/18 09:10 Dose: 2 mg Morphine Sulfate (Morphine) 5 - 10 mg SL Q2HP PRN PRN Reason: comfort care Ondansetron HCl (Zofran) 4 mg IV Q4-6HP PRN PRN Reason: Nausea And Vomiting Sodium Chloride (Saline Flush) 10 ml IV Q8 [facility] Last Admin: 02/04/18 04:06 Dose: 10 ml Sodium Chloride (Saline Flush) 10 ml IV Q8 [facility] Last Admin: 02/04/18 06:59 Dose: 10 ml Medical - PN: A/P - Time Spent With Patient Total time spent is greater than 50% in coordination of care (as documented) at patient's floor/unit and/or counseling patient: - Narrative A/P Narrative: A/P Acute on Chronic Renal failure Acute Congestive Heart failure wuith genralized anasarca Acute hypoxic REspiratory failure Acute Hyperkalemia Atrial Flutter with Slow heart rate Bradycardia Hypertension Hyperlipidemia Diabetes Mellitus Obesty Elevated troponin Acute hemorrhagic CVA Plan Patient has elected comfort care morphine ativan for comfort, add oral agents incase IV access is lost regular diet for comfort Family at bedside DNR CC Medical - PN: Qual - VTE Deep Vein Thrombosis/Pulmonary Embolism Present on Admission: No
[2018-02-04] MEDS: morphine 20 MG/ML ORAL.CONC SL PRN ×4 (14:27→23:55)
[2018-02-05] MEDS: morphine 20 MG/ML ORAL.CONC SL PRN ×4 (04:22→23:56)
--- NOTE | 2018-02-05 15:03 | Internal Med Progress Note ---
Medical - PN: Subj Patient information: Note initiated : 02/05/18 at 3:02 pm Service Date, if different from initiated Date: [] Patient: Darshan Barba a 82 y/o M admitted on 02/02/18 for Hyperkalemia, Volume Overload. Chief Complaint: [] Interval history: Mr. Barba is a 82 year old M with multiple medical issues [facility]. The patient was there after the stent at [facility]. I believe he was admitted for sepsis and pneumonia, he also had acute on chronic renal failure. The patient was seen in the clinic by nephrology for renal failure follow-up at which time it was noted that the patient had significant bradycardia. Even during his hospital stay the patient had low heart rate this time around the patient's heart rate was in the 30s. The patient was sent to the emergency room at [facility] for evaluation. The patient was seen by a weigher packing Dr. Smith. I reviewed his note pacemaker was not offered to this patient as he was asymptomatic, was mentating well, and was making good amounts of urine. No changes in medications were recommended. Patient was subsequently discharged back to [place]. The patient at the rehab center continued to have worsening shortness of breath, had one episode of healthcare associated pneumonia and was treated with Zosyn. Antibiotics started on Monday 5 days of antibiotics will be tomorrow. I reviewed the discharge summary from pulmonary. Shortness of breath progressively has worsened over the last few days, patient has had some cough increased distention of abdomen increased swelling in his lower extremity. The patient has been treated with IV Lasix, without much response and worsening renal function. The patient was therefore sent here at [facility] for initiation of dialysis. Patient is somewhat hesitant regarding his dialysis plans at bedside he is willing to consider dialysis if it makes him feel better. On my evaluation today the patient was short of breath and that was his only complaint. He did not mention about chest pain nausea vomiting, had generalized swelling and worsening swelling along with worsening distention of abdomen. He denied any headache changes in vision difficulty in swallowing denied any fevers chills had some cough but no specific sputum production. Patient was saturating around 90-92% on 6 L of oxygen. Heart rate was 35 EKG was done stat which showed atrial flutter with slow ventricular response. He was placed on BIPAp to help with oxygenation. Admitted to PCU for further management, nephrology has been consulted and are following 02/03 Patient seen and examined no acute overnight events, he was responding very well to Bumex diuresis. The patient unfortunately this morning had left-sided weakness facial droop and decreased sensation on his left-sided extremities. CT head showed acute hemorrhagic infarct. The patient has been struggling with hospital admissions, worsening renal function cardiac function and now has developed a stroke. He still has his cognition. He did not want to be transferred to a high level of care. At this point in time he does not even wish to continue with ongoing treatment. I reviewed the plan of care of hospice with the entire family. The patient's sons and daughters grandkids were present and they all made a decision to under the patient's wishes and make him comfortable. Patient has been transferred to comfort care status. All nonessential medications have been discontinued only medications for comfort are going to be administered. 02/04 Patient seen and examined, in bed comfortable. Patient is presently in comfort care status. Not in distress family by bedside 02/05 Pt seen , family by bedside, no concerns reported Pertinent ROS: unable - Constitutional Vitals: Vital Signs Temp Pulse Resp BP Pulse Ox 101.1 F H 36 L 28 H 105/92 96 02/04/18 04:00 02/05/18 07:46 02/04/18 20:00 02/03/18 10:03 02/03/18 11:31 Period Temp Pulse Resp BP Sys/Julian Pulse Ox Last 24 Hr 36 28 Intake & Output: Intake & Output 02/05/18 02/05/18 02/05/18 05:59 13:59 21:59 Other: Urine Appearance Clear Uretheral (Coombs) Clear Urine Color Dark Yellow Uretheral (Coombs) Dark Yellow Urine Odor Strong Uretheral (Coombs) Normal Stool Size Small Stool Color Brown Stool Consistency Soft Formed General appearance: no acute distress Medical - PN: Obj Da - Labs CBC & Chem 7: 02/03/18 03:50 02/03/18 03:50 Labs: Abnormal Lab Results 02/03/18 02/03/18 02/03/18 08:05 07:48 03:50 RBC Hgb Hct RDW Lymph % (Auto) Lymph # (Auto) POC PT 15.1 H PT 16.5 H POC INR 1.3 H INR 1.3 H Potassium Carbon Dioxide Anion Gap 17.0 H BUN 80 H Creatinine 3.3 H Glucose 128 H Uric Acid 8.2 H Phosphorus 5.2 H GGT 68 H Lactate Dehydrogenase 279 H Troponin T Albumin 3.0 L Albumin/Globulin Ratio 0.9 L 02/03/18 02/02/18 02/02/18 03:50 18:52 18:52 RBC 2.65 L Hgb 7.8 L Hct 23.6 L RDW 15.9 H Lymph % (Auto) 12.5 L Lymph # (Auto) 0.9 L POC PT PT POC INR INR Potassium 5.2 H Carbon Dioxide 21 L Anion Gap BUN 81 H Creatinine 3.6 H Glucose 248 H Uric Acid Phosphorus GGT Lactate Dehydrogenase Troponin T 0.50 H* Albumin Albumin/Globulin Ratio Meds: Medications Acetaminophen (Tylenol) 650 mg PO Q4-6HP PRN PRN Reason: PAIN/FEVER > 101 Glucose Oxid/Lactoperoxid/Muramidas (Biotene) 1 each TOPICAL PRN PRN PRN Reason: Dry Mouth Last Admin: 02/04/18 15:59 Dose: 1 each Guaifenesin (Robitussin Dm) 10 ml PO Q4HP PRN PRN Reason: Cough Lorazepam (Ativan) 0 mg IV Q1HP PRN; Protocol PRN Reason: ANXIETY/SEDATION Last Admin: 02/04/18 06:58 Dose: 1 mg Lorazepam (Ativan) 1 mg SL Q4HP PRN PRN Reason: Anxiety Morphine Sulfate (Morphine) 0 mg IV Q1HP PRN PRN Reason: Pain Last Admin: 02/04/18 09:10 Dose: 2 mg Morphine Sulfate (Morphine) 5 - 10 mg SL Q2HP PRN PRN Reason: comfort care Last Admin: 02/05/18 11:58 Dose: 5 mg Ondansetron HCl (Zofran) 4 mg IV Q4-6HP PRN PRN Reason: Nausea And Vomiting Medical - PN: A/P - Time Spent With Patient Total time spent is greater than 50% in coordination of care (as documented) at patient's floor/unit and/or counseling patient: - Narrative A/P Narrative: A/P Acute on Chronic Renal failure Acute Congestive Heart failure wuith genralized anasarca Acute hypoxic REspiratory failure Acute Hyperkalemia Atrial Flutter with Slow heart rate Bradycardia Hypertension Hyperlipidemia Diabetes Mellitus Obesty Elevated troponin Acute hemorrhagic CVA Plan Patient has elected comfort care morphine ativan for comfort, add oral agents incase IV access is lost regular diet for comfort no change in plan Family at bedside DNR CC Medical - PN: Qual - VTE Deep Vein Thrombosis/Pulmonary Embolism Present on Admission: No
[2018-02-06] MEDS: morphine 20 MG/ML ORAL.CONC SL PRN (00:45)
--- NOTE | 2018-02-06 15:21 | Internal Med Progress Note ---
Medical - PN: Subj Patient information: Note initiated : 02/06/18 at 3:18 pm Service Date, if different from initiated Date: [] Patient: Darshan Barba a 82 y/o M admitted on 02/02/18 for Hyperkalemia, Volume Overload. Chief Complaint: f/u CVA, comfort care Interval history: 02/02 Mr. Barba is a 82 year old M with multiple medical issues [facility]. The patient was there after the stent at [facility]. I believe he was admitted for sepsis and pneumonia, he also had acute on chronic renal failure. The patient was seen in the clinic by nephrology for renal failure follow-up at which time it was noted that the patient had significant bradycardia. Even during his hospital stay the patient had low heart rate this time around the patient's heart rate was in the 30s. The patient was sent to the emergency room at [facility] for evaluation. The patient was seen by a international affairs vice president Dr. Smith. I reviewed his note pacemaker was not offered to this patient as he was asymptomatic, was mentating well, and was making good amounts of urine. No changes in medications were recommended. Patient was subsequently discharged back to [place]. The patient at the rehab center continued to have worsening shortness of breath, had one episode of healthcare associated pneumonia and was treated with Zosyn. Antibiotics started on Monday 5 days of antibiotics will be tomorrow. I reviewed the discharge summary from pulmonary. Shortness of breath progressively has worsened over the last few days, patient has had some cough increased distention of abdomen increased swelling in his lower extremity. The patient has been treated with IV Lasix, without much response and worsening renal function. The patient was therefore sent here at [facility] for initiation of dialysis. Patient is somewhat hesitant regarding his dialysis plans at bedside he is willing to consider dialysis if it makes him feel better. On my evaluation today the patient was short of breath and that was his only complaint. He did not mention about chest pain nausea vomiting, had generalized swelling and worsening swelling along with worsening distention of abdomen. He denied any headache changes in vision difficulty in swallowing denied any fevers chills had some cough but no specific sputum production. Patient was saturating around 90-92% on 6 L of oxygen. Heart rate was 35 EKG was done stat which showed atrial flutter with slow ventricular response. He was placed on BIPAp to help with oxygenation. Admitted to PCU for further management, nephrology has been consulted and are following 02/03 Patient seen and examined no acute overnight events, he was responding very well to Bumex diuresis. The patient unfortunately this morning had left-sided weakness facial droop and decreased sensation on his left-sided extremities. CT head showed acute hemorrhagic infarct. The patient has been struggling with hospital admissions, worsening renal function cardiac function and now has developed a stroke. He still has his cognition. He did not want to be transferred to a high level of care. At this point in time he does not even wish to continue with ongoing treatment. I reviewed the plan of care of hospice with the entire family. The patient's sons and daughters grandkids were present and they all made a decision to under the patient's wishes and make him comfortable. Patient has been transferred to comfort care status. All nonessential medications have been discontinued only medications for comfort are going to be administered. 02/04 Patient seen and examined, in bed comfortable. Patient is presently in comfort care status. Not in distress family by bedside 02/05 Pt seen , family by bedside, no concerns reported 02/06 Patient less responsive today. Seen at bedside with his , 2 of his daughters. Seemed to choke on oral morphine solution for comfort, had IV placed for comfort med administration. Urine output had increased, now starting to decrease, though remains nonoliguric. Pertinent ROS: Unobtainable due to the patient's condition - Constitutional Vitals: Vital Signs Temp Pulse Resp BP Pulse Ox 98.5 F 47 L 14 103/51 84 L 02/06/18 13:00 02/06/18 13:00 02/06/18 13:00 02/06/18 13:00 02/06/18 13:00 Period Temp Pulse Resp BP Sys/Julian Pulse Ox Last 24 Hr 98.5 F-99 F 44-47 12-14 103-134/51-53 84-91 Intake and Output 02/06/18 02/06/18 02/06/18 05:59 13:59 21:59 Output Total 350 / 350 Balance -350 / -350 Intake & Output: Intake & Output 02/06/18 02/06/18 02/06/18 05:59 13:59 21:59 Output Total 350 / 350 Balance -350 / -350 Output: Urine Catheter Amount 350 / 350 Other: Urine Appearance Cloudy Urine Color Light Marly Urine Odor Strong Exam: General: Resting in bed on his right side Chest: Shallow respirations, no wheezes Cardiovascular: Bradycardic with 3/6 precordial murmur Abdomen: Distended, soft, bowel sounds present Neuro: Minimally rouses to shake Medical - PN: Obj Da - Labs CBC & Chem 7: 02/03/18 03:50 02/03/18 03:50 Meds: Medications Acetaminophen (Tylenol) 650 mg PO Q4-6HP PRN PRN Reason: PAIN/FEVER > 101 Glucose Oxid/Lactoperoxid/Muramidas (Biotene) 1 each TOPICAL PRN PRN PRN Reason: Dry Mouth Last Admin: 02/04/18 15:59 Dose: 1 each Guaifenesin (Robitussin Dm) 10 ml PO Q4HP PRN PRN Reason: Cough Lorazepam (Ativan) 0 mg IV Q1HP PRN; Protocol PRN Reason: ANXIETY/SEDATION Last Admin: 02/04/18 06:58 Dose: 1 mg Lorazepam (Ativan) 1 mg SL Q4HP PRN PRN Reason: Anxiety Last Admin: 02/06/18 03:10 Dose: 1 mg Morphine Sulfate (Morphine) 0 mg IV Q1HP PRN PRN Reason: Pain Last Admin: 02/04/18 09:10 Dose: 2 mg Morphine Sulfate (Morphine) 5 - 10 mg SL Q2HP PRN PRN Reason: comfort care Last Admin: 02/06/18 00:45 Dose: 5 mg Ondansetron HCl (Zofran) 4 mg IV Q4-6HP PRN PRN Reason: Nausea And Vomiting Medical - PN: A/P - Narrative A/P Narrative: 82-year-old male presenting with increasing dyspnea, found to have acute congestive heart failure,, acute renal failure, subsequently experienced acute hemorrhagic CVA and transition to comfort care. Acute hemorrhagic CVA Acute on Chronic Renal failure Acute Congestive Heart failure with generalized anasarca Acute hypoxic respiratory failure Acute Hyperkalemia Atrial Flutter with Slow heart rate Hypertension Hyperlipidemia Diabetes Mellitus Obesity Elevated troponin Plan Patient is on comfort care, as outlined in previous notes Does not tolerate oral/sublingual comfort meds, requires IV opioids and benzodiazepines for comfort No longer taking a diet Given need for IV medications for comfort, oriented remain hospitalized on comfort measures Discussed with family at bedside Medical - PN: Qual - VTE Deep Vein Thrombosis/Pulmonary Embolism Present on Admission: No
[2018-02-06] MEDS ORDERED: SCOPOLAMINE 1 PATCH PATCH TOPICAL SCH (22:45)
[2018-02-06] MEDS ORDERED: SCOPOLAMINE 1 PATCH PATCH ONE (22:49)
[2018-02-07] MEDS: LORazepam 2 MG/ML VIAL IV PRN ×2 (00:21→01:45)
--- NOTE | 2018-02-07 09:05 | Death Note ---
Discharge Sum: Prov - Provider Patient information: Note initiated : 02/07/18 at 9:03 am Service Date, if different from initiated Date: [] Patient: Darshan Barba a 82 y/o M admitted on 02/02/18 for Hyperkalemia, Volume Overload. Primary care physician: Param Flores Admitting clinician: Annia Gonzalez Discharge Sum: Diag - PCOD Cause of : Intracerebral hemorrhage (Right frontal) Discharge Sum: Summary - Date and Time Date of admission: 02/02/18 11:55 Date of : 02/07/18 Time of : 07:02 - Summary Details: 02/02 Mr. Barba is a 82 year old M with multiple medical issues [facility]. The patient was there after the stent at [facility]. I believe he was admitted for sepsis and pneumonia, he also had acute on chronic renal failure. The patient was seen in the clinic by nephrology for renal failure follow-up at which time it was noted that the patient had significant bradycardia. Even during his hospital stay the patient had low heart rate this time around the patient's heart rate was in the 30s. The patient was sent to the emergency room at [facility] for evaluation. The patient was seen by a vest busheler Dr. Smith. I reviewed his note pacemaker was not offered to this patient as he was asymptomatic, was mentating well, and was making good amounts of urine. No changes in medications were recommended. Patient was subsequently discharged back to [place]. The patient at the rehab center continued to have worsening shortness of breath, had one episode of healthcare associated pneumonia and was treated with Zosyn. Antibiotics started on Monday 5 days of antibiotics will be tomorrow. I reviewed the discharge summary from pulmonary. Shortness of breath progressively has worsened over the last few days, patient has had some cough increased distention of abdomen increased swelling in his lower extremity. The patient has been treated with IV Lasix, without much response and worsening renal function. The patient was therefore sent here at [facility] for initiation of dialysis. Patient is somewhat hesitant regarding his dialysis plans at bedside he is willing to consider dialysis if it makes him feel better. On my evaluation today the patient was short of breath and that was his only complaint. He did not mention about chest pain nausea vomiting, had generalized swelling and worsening swelling along with worsening distention of abdomen. He denied any headache changes in vision difficulty in swallowing denied any fevers chills had some cough but no specific sputum production. Patient was saturating around 90-92% on 6 L of oxygen. Heart rate was 35 EKG was done stat which showed atrial flutter with slow ventricular response. He was placed on BIPAp to help with oxygenation. Admitted to PCU for further management, nephrology has been consulted and are following 02/03 Patient seen and examined no acute overnight events, he was responding very well to Bumex diuresis. The patient unfortunately this morning had left-sided weakness facial droop and decreased sensation on his left-sided extremities. CT head showed acute hemorrhagic infarct. The patient has been struggling with hospital admissions, worsening renal function cardiac function and now has developed a stroke. He still has his cognition. He did not want to be transferred to a high level of care. At this point in time he does not even wish to continue with ongoing treatment. I reviewed the plan of care of hospice with the entire family. The patient's sons and daughters grandkids were present and they all made a decision to under the patient's wishes and make him comfortable. Patient has been transferred to comfort care status. All nonessential medications have been discontinued only medications for comfort are going to be administered. 02/04 Patient seen and examined, in bed comfortable. Patient is presently in comfort care status. Not in distress family by bedside 02/05 Pt seen , family by bedside, no concerns reported 02/06 Patient less responsive today. Seen at bedside with his , 2 of his daughters. Seemed to choke on oral morphine solution for comfort, had IV placed for comfort med administration. Urine output had increased, now starting to decrease, though remains nonoliguric. 02/07 Patient had scopolamine patch added overnight for secretions. Became agonal toward shift change, was pronounced by 2 RN exam at 07:02 on 02/07/2018. - Additional Data Confirmation of as documented by pronouncing clinician: no pulse, no respirations, no heart sounds, pupils fixed and dilated Family: at bedside Attending physician: Sally Singh Was code activated?: No Autopsy requested?: No budget examiner notified?: No Organ bank notified?: Yes Advance directives?: Yes Hospice patient?: No
== END 2018-02-07 07:02 | disposition expired | DRG 291 ==
LOC: SUATTDRO 11:55 → ICU 11:55
PROVIDERS: ADMIT Internal Medicine; ATTEND Internal Medicine
CPT/HCPCS: 80047; 85014; 99223; 99231; A6213; J0610; J1205; J1644; J1815; J1817; J1940; J2060; J2270; J2405; J2543; J2765; J7050; J7060; J7620; J7620-GY